=== PATIENT | female | born 1965 | race Caucasian/White ===

== ENCOUNTER 2017-03-30 10:33 | Emergency (ER) | payer OTHER ==
[~2017-03-30 10:33] MED LIST: ASPIRIN325 MG PO; CALAN SR240 MG PO; CELEXA40 MG PO; DULERA 200 MCG8.8 GM IH; FERROUS SULFAT325 MG PO; K-DUR20 MEQ PO; KLONOPIN0.5 MG PO; LAMICTAL150 MG PO; LIPITOR20 MG PO; NEURONTIN600 MG PO; OMEPRAZOLE40 MG PO; OXYBUTYNIN CHLOR5 MG PO; SEROQUEL25 MG PO; SEROQUEL50 MG PO; VENTOLIN HFA8 GM IH
== END 2017-03-30 11:25 | disposition home or self-care (01) ==
LOC: ER 10:33
DX: L23.7 Allergic contact dermatitis due to plants, except food (principal); N02.8 Recurrent and persistent hematuria with other morphologic changes; Z79.02 Long term (current) use of antithrombotics/antiplatelets; Z79.82 Long term (current) use of aspirin; Z79.899 Other long term (current) drug therapy
CPT/HCPCS: 96372; J1100

== ENCOUNTER 2017-06-29 12:19 | Emergency (ER) | payer OTHER | END 2017-06-29 14:25 | disposition home or self-care (01) | LOC: ER 12:19 | DX: T63.301A Toxic effect of unspecified spider venom, accidental (unintentional), initial encounter (principal); I10 Essential (primary) hypertension; K21.9 Gastro-esophageal reflux disease without esophagitis; F32.9 Major depressive disorder, single episode, unspecified; M79.7 Fibromyalgia; F17.210 Nicotine dependence, cigarettes, uncomplicated; Z90.710 Acquired absence of both cervix and uterus; Z86.73 Personal history of transient ischemic attack (TIA), and cerebral infarction without residual deficits; Z86.14 Personal history of Methicillin resistant Staphylococcus aureus infection; Z23 Encounter for immunization; Z79.899 Other long term (current) drug therapy; Z79.82 Long term (current) use of aspirin; Z88.6 Allergy status to analgesic agent; Y99.8 Other external cause status | CPT/HCPCS: 90471 ==